=== PATIENT | female | born 1965 | race Native Hawaiian/Other Pacific Islander ===

== ENCOUNTER 2018-04-30 16:58 | Emergency (ER) | payer OTHER ==
[~2018-04-30] VITALS: Ht 154.9 cm; Wt 59.0 kg
[2018-04-30 19:45] VITALS: BP 129/76; TEMP 97.3
== END 2018-04-30 19:45 | disposition home or self-care (01) ==
LOC: ED 16:58
DX: M15.8 Other polyosteoarthritis (principal)
CPT/HCPCS: 99283